=== PATIENT | female | born 1950 | race Caucasian/White ===

== ENCOUNTER 2017-09-30 17:29 | Day surgery (SDC) | payer OTHER ==
[~2017-09-30 17:29] MED LIST: ALBU3IS INH; ALBUIS INH; APLXABAN; ATEN25 PO; BUDE.5; Colace100 MG PO; DILT30 PT; ELIQUIS5 MG PT; FURO100EL; Flonase 0.05% N16 GM; LIDO5TP TOP; LISI5 PO; METO25ER PO; Miralax17 GM PO; OXYC5 PT; Prinivil10 MG PT; TRAM50 PO; TRAZ150T57 PO; VENL25 PO; VENL37.5 PT; VENL75ER PO; ZOLP5
[2018-07-10] MEDS ORDERED: LINZESS145 MCG PO (09:01)
[2018-07-10] MEDS ORDERED: LISI5 PO (09:02)
[2018-07-10] MEDS ORDERED: GUAI600T33 PO (13:09)
[2018-07-13] MEDS ORDERED: Pedi-Dri 100,0060 GM TOP (13:18)
[2018-07-13] MEDS ORDERED: CEPACOL SORE T1 EACH MM (13:18)
[2018-07-13] MEDS ORDERED: CLARITIN5 MG PO (13:19)
[2018-07-13] MEDS ORDERED: Augmentin 875-1 EACH PO (13:20)
[2018-08-13] MEDS ORDERED: Artificial Tea1 EACH (11:00)
[2018-08-13] MEDS ORDERED: BENADRYL25 MG PO (11:01)
[2018-08-13] MEDS ORDERED: CEPACOL SORE T1 EACH MM (11:01)
[2018-08-13] MEDS ORDERED: CLARITIN10 MG PO (11:02)
[2018-08-13] MEDS ORDERED: ALBU3IS (11:04)
[2018-08-13] MEDS ORDERED: DOC250 PO (11:04)
[2018-08-13] MEDS ORDERED: VENL75ER PO (11:05)
[2018-08-13] MEDS ORDERED: Ferrous Sulfat325 M2 PO (11:05)
[2018-08-13] MEDS ORDERED: FLONASE ALLERG9.9 ML (11:05)
[2018-08-13] MEDS ORDERED: LINZESS145 MCG PO (11:06)
[2018-08-13] MEDS ORDERED: FURO20 PO (11:06)
[2018-08-13] MEDS ORDERED: Prinivil10 MG PO (11:06)
[2018-08-13] MEDS ORDERED: METO25ER PO (11:08)
[2018-08-13] MEDS ORDERED: Milk Of Ma400 MG/5 M PO (11:13)
[2018-08-13] MEDS ORDERED: MIRALAX17 GM PO (11:13)
[2018-08-13] MEDS ORDERED: NUTRISOURCE FI1 EACH PO (11:13)
[2018-08-13] MEDS ORDERED: Percocet 5-3251 EACH PO (11:14)
[2018-08-13] MEDS ORDERED: OXYC10ER PO (11:14)
[2018-08-13] MEDS ORDERED: Prilosec Otc20 MG PO (11:14)
[2018-08-13] MEDS ORDERED: TRAZ50 PO (11:15)
[2018-08-13] MEDS ORDERED: Pure & Gentle E15 ML BOTHEYES (17:44)
[2018-08-13] MEDS ORDERED: ALBU3IS INH (17:48)
[2018-08-13] MEDS ORDERED: CVS DISPOSABLE399 ML PR (17:51)
[2018-08-13] MEDS ORDERED: LAXATIVE SUPPO1 EACH PR (17:53)
[2018-08-13] MEDS ORDERED: LIDO5TO TOP (17:54)
[2018-08-13] MEDS ORDERED: GUAI600T33 PO (17:54)
[2018-08-13] MEDS ORDERED: NITR.4SL SL (17:58)
[2018-08-13] MEDS ORDERED: ANESTHETIC MM (17:59)
[2018-08-13] MEDS ORDERED: OXYC10TA19 PO (18:01)
[2018-08-13] MEDS ORDERED: ROBITUSSIN NIG237 ML PO (18:04)
[2018-08-13] MEDS ORDERED: SENN187 PO (18:04)
[2018-08-13] MEDS ORDERED: ACET325 PO (18:05)
[2018-08-13] MEDS ORDERED: Voltaren100 GM TOP (18:07)
[2018-08-13] MEDS ORDERED: Zofran4 MG PO (18:08)
[2018-08-13] MEDS ORDERED: Budesonide0.5 MG/2 M INH (18:09)
[2018-08-15] MEDS ORDERED: CEPH500 PO (11:56)
== END 2017-10-01 04:35 | disposition home or self-care (01) ==
LOC: MEDS 17:29
PROC: 30233N1 Transfusion of Nonautologous Red Blood Cells into Peripheral Vein, Percutaneous Approach (ICD-10-PCS; principal; 2017-09-30)
DX: D64.9 Anemia, unspecified (principal)
CPT/HCPCS: 36415; 36430; 86850; 86900; 86901; 86920; J1940; J7030; P9016

== ENCOUNTER 2017-10-04 20:17 | Inpatient (IN) | payer OTHER ==
[~2017-10-04] VITALS: Ht 157.5 cm; Wt 41.2 kg
[2017-10-04 20:47] LABS: BASOPHILS ABSOLUTE AUTO 0.08 K/mm3 (0.00-0.23); BASOPHILS PERCENT AUTO 1 % (0-2); EOSINOPHILS ABSOLUTE AUTO 0.31 K/mm3 (0.00-0.68); EOSINOPHILS PERCENT AUTO 3 % (0-6); Hematocrit 37.3 % (33.0-51.0); Hemoglobin 11.2 g/dL (11.5-16.0); IMMATURE GRAN ABSOLUTE AUTO 0.05 K/mm3 (0.00-0.10); IMMATURE GRAN PERCENT AUTO 0 % (0-1); LYMPHOCYTES PERCENT AUTO 6 % (21-46); MONOCYTES ABSOLUTE AUTO 1.12 K/mm3 (0.16-1.47); MONOCYTES PERCENT AUTO 9 % (4-13); Mean Corpuscular HGB 26.5 pg (26.0-34.0); Mean Corpuscular Volume 88 fL (80-100); Mean Platelet Volume 9.1 fL (9.1-12.4); NEUTROPHILS ABSOLUTE AUTO 10.27 K/mm3 (1.96-9.15); NEUTROPHILS PERCENT AUTO 81 % (41-73); Platelet Count 427 K/mm3 (150-400); RDW Coefficient Variation 17.7 % (11.7-14.2); RDW Standard Deviation 54.5 fL (35.1-46.3); Red Blood Cell Count 4.23 M/mm3 (3.80-5.20); White Blood Cell Count 12.63 K/mm3 (4.00-11.30)
[2017-10-04 21:06] LABS: Alanine Aminotransfer (ALT/SGP 12 U/L (12-78); Albumin/Globulin Ratio 0.5 (0.8-1.8); Alk Phos 133 U/L (50-136); Anion Gap 6 mmol/L (6-16); Aspartate Aminotrans (AST/SGOT 12 U/L (12-37); Bilirubin, Total 0.6 mg/dL (0.1-1.0); Blood Urea Nitrogen 22 mg/dL (8-24); Bun/Creatinine Ratio 29.3 (12.0-20.0); CO2, Blood 30 mmol/L (21-32); Calcium, Blood 10.7 mg/dL (8.5-10.1); Chloride, Blood 100 mmol/L (98-108); Creatinine, Blood 0.75 mg/dL (0.40-1.00); Globulin, Blood 5.7 g/dL (2.2-4.0); Glomerular Filtration Rate >60 (60-); Glucose, Blood 100 mg/dL (70-99); Potassium, Blood 4.8 mmol/L (3.5-5.5); Sodium, Blood 136 mmol/L (136-145); Total Protein, Blood 8.7 g/dL (6.4-8.2); Troponin I <0.015 ng/mL (0.000-0.040)
[2017-10-04 21:18] LABS: PCO2 Arterial 51.7 mmHg (35-45); pH Blood Arterial 7.38 (7.35-7.45)
[2017-10-04 21:20] LABS: PO2 Arterial 85.3 mmHg (80-100)
[2017-10-04] MEDS ORDERED: FURO20 PO (22:02)
[2017-10-04] MEDS ORDERED: GAVILAX17 GM PO (23:58)
[2017-10-04] MEDS ORDERED: Prilosec Otc20 MG PO (23:59)
[2017-10-05] MEDS ORDERED: NUTRISOURCE FI1 EACH PO
[2017-10-05] MEDS ORDERED: TRAZ50 PO (00:01)
[2017-10-05] MEDS ORDERED: CHOL10002 PO (00:02)
[2017-10-05] MEDS ORDERED: DOCU100 PO (00:02)
[2017-10-05] MEDS ORDERED: ELIQUIS5 MG PO (00:03)
[2017-10-05] MEDS ORDERED: Ferrous Sulfat325 MG PO (00:04)
[2017-10-05] MEDS ORDERED: Flonase 0.05% N16 GM (00:04)
[2017-10-05] MEDS ORDERED: BUDE.5 NEB (00:05)
[2017-10-05] MEDS ORDERED: SENN187 PO (00:06)
[2017-10-05] MEDS ORDERED: ACET325 PO (00:07)
[2017-10-05] MEDS ORDERED: ARTIFICIAL TEAR30 ML BOTHEYES (00:09)
[2017-10-05] MEDS ORDERED: OXYC10TA19 PO (00:12)
[2017-10-05] MEDS ORDERED: ALBU3IS INH (00:13)
[2017-10-05] MEDS ORDERED: DIPH50 PO (00:14)
[2017-10-05] MEDS ORDERED: ROBITUSSIN NIG237 ML PO (00:16)
[2017-10-05] MEDS ORDERED: ONDA4 PO (00:17)
[2017-10-05 04:57] LABS: BASOPHILS ABSOLUTE AUTO 0.06 K/mm3 (0.00-0.23); BASOPHILS PERCENT AUTO 1 % (0-2); EOSINOPHILS ABSOLUTE AUTO 0.12 K/mm3 (0.00-0.68); EOSINOPHILS PERCENT AUTO 1 % (0-6); Hemoglobin 10.3 g/dL (11.5-16.0); IMMATURE GRAN ABSOLUTE AUTO 0.04 K/mm3 (0.00-0.10); IMMATURE GRAN PERCENT AUTO 0 % (0-1); LYMPHOCYTES ABSOLUTE AUTO 0.86 K/mm3 (0.84-5.20); LYMPHOCYTES PERCENT AUTO 7 % (21-46); MONOCYTES ABSOLUTE AUTO 0.97 K/mm3 (0.16-1.47); MONOCYTES PERCENT AUTO 8 % (4-13); Mean Corpuscular HGB 26.5 pg (26.0-34.0); Mean Corpuscular HGB Conc 30.3 g/dL (31.5-36.5); Mean Corpuscular Volume 87 fL (80-100); Mean Platelet Volume 9.4 fL (9.1-12.4); NEUTROPHILS ABSOLUTE AUTO 10.16 K/mm3 (1.96-9.15); NEUTROPHILS PERCENT AUTO 83 % (41-73); Platelet Count 400 K/mm3 (150-400); RDW Coefficient Variation 17.9 % (11.7-14.2); RDW Standard Deviation 54.4 fL (35.1-46.3); Red Blood Cell Count 3.89 M/mm3 (3.80-5.20); White Blood Cell Count 12.21 K/mm3 (4.00-11.30)
[2017-10-05 05:16] LABS: Alanine Aminotransfer (ALT/SGP 9 U/L (12-78); Albumin, Blood 2.8 g/dL (3.4-5.0); Albumin/Globulin Ratio 0.5 (0.8-1.8); Alk Phos 119 U/L (50-136); Anion Gap 6 mmol/L (6-16); Aspartate Aminotrans (AST/SGOT 12 U/L (12-37); Bilirubin, Total 0.3 mg/dL (0.1-1.0); Blood Urea Nitrogen 20 mg/dL (8-24); Bun/Creatinine Ratio 25.7 (12.0-20.0); CO2, Blood 28 mmol/L (21-32); Calcium, Blood 10.3 mg/dL (8.5-10.1); Chloride, Blood 102 mmol/L (98-108); Creatinine, Blood 0.78 mg/dL (0.40-1.00); Globulin, Blood 5.1 g/dL (2.2-4.0); Glomerular Filtration Rate >60 (60-); Glucose, Blood 113 mg/dL (70-99); Potassium, Blood 4.4 mmol/L (3.5-5.5); Sodium, Blood 136 mmol/L (136-145); Total Protein, Blood 7.9 g/dL (6.4-8.2)
[2017-10-06 05:32] LABS: BASOPHILS ABSOLUTE AUTO 0.05 K/mm3 (0.00-0.23); BASOPHILS PERCENT AUTO 1 % (0-2); EOSINOPHILS ABSOLUTE AUTO 0.23 K/mm3 (0.00-0.68); EOSINOPHILS PERCENT AUTO 3 % (0-6); Hemoglobin 9.9 g/dL (11.5-16.0); IMMATURE GRAN ABSOLUTE AUTO 0.03 K/mm3 (0.00-0.10); IMMATURE GRAN PERCENT AUTO 0 % (0-1); LYMPHOCYTES ABSOLUTE AUTO 0.79 K/mm3 (0.84-5.20); LYMPHOCYTES PERCENT AUTO 9 % (21-46); MONOCYTES ABSOLUTE AUTO 0.98 K/mm3 (0.16-1.47); MONOCYTES PERCENT AUTO 12 % (4-13); Mean Corpuscular HGB 26.9 pg (26.0-34.0); Mean Corpuscular HGB Conc 30.9 g/dL (31.5-36.5); Mean Corpuscular Volume 87 fL (80-100); Mean Platelet Volume 9.3 fL (9.1-12.4); NEUTROPHILS ABSOLUTE AUTO 6.31 K/mm3 (1.96-9.15); NEUTROPHILS PERCENT AUTO 75 % (41-73); Platelet Count 375 K/mm3 (150-400); RDW Coefficient Variation 18.2 % (11.7-14.2); RDW Standard Deviation 56.7 fL (35.1-46.3); Red Blood Cell Count 3.68 M/mm3 (3.80-5.20); White Blood Cell Count 8.39 K/mm3 (4.00-11.30)
[2017-10-06 05:52] LABS: Alanine Aminotransfer (ALT/SGP 12 U/L (12-78); Albumin, Blood 2.6 g/dL (3.4-5.0); Albumin/Globulin Ratio 0.5 (0.8-1.8); Alk Phos 112 U/L (50-136); Anion Gap 6 mmol/L (6-16); Aspartate Aminotrans (AST/SGOT 9 U/L (12-37); Bilirubin, Total 0.4 mg/dL (0.1-1.0); Blood Urea Nitrogen 24 mg/dL (8-24); Bun/Creatinine Ratio 27.2 (12.0-20.0); CO2, Blood 30 mmol/L (21-32); Calcium, Blood 10.1 mg/dL (8.5-10.1); Chloride, Blood 99 mmol/L (98-108); Creatinine, Blood 0.88 mg/dL (0.40-1.00); Glomerular Filtration Rate >60 (60-); Glucose, Blood 91 mg/dL (70-99); Magnesium, Blood 2.1 mg/dL (1.6-2.4); Potassium, Blood 4.5 mmol/L (3.5-5.5); Sodium, Blood 135 mmol/L (136-145); Total Protein, Blood 7.6 g/dL (6.4-8.2)
[2017-10-07] MEDS ORDERED: Percocet 5-3251 EACH PO (12:21)
[2018-07-10] MEDS ORDERED: LINZESS145 MCG PO (09:01)
[2018-07-10] MEDS ORDERED: LISI5 PO (09:02)
[2018-07-10] MEDS ORDERED: GUAI600T33 PO (13:09)
[2018-07-13] MEDS ORDERED: CEPACOL SORE T1 EACH MM (13:18)
[2018-07-13] MEDS ORDERED: Pedi-Dri 100,0060 GM TOP (13:18)
[2018-07-13] MEDS ORDERED: CLARITIN5 MG PO (13:19)
[2018-07-13] MEDS ORDERED: Augmentin 875-1 EACH PO (13:20)
[2018-08-13] MEDS ORDERED: Artificial Tea1 EACH (11:00)
[2018-08-13] MEDS ORDERED: CEPACOL SORE T1 EACH MM (11:01)
[2018-08-13] MEDS ORDERED: BENADRYL25 MG PO (11:01)
[2018-08-13] MEDS ORDERED: CLARITIN10 MG PO (11:02)
[2018-08-13] MEDS ORDERED: DOC250 PO (11:04)
[2018-08-13] MEDS ORDERED: ALBU3IS (11:04)
[2018-08-13] MEDS ORDERED: VENL75ER PO (11:05)
[2018-08-13] MEDS ORDERED: Ferrous Sulfat325 M2 PO (11:05)
[2018-08-13] MEDS ORDERED: FLONASE ALLERG9.9 ML (11:05)
[2018-08-13] MEDS ORDERED: LINZESS145 MCG PO (11:06)
[2018-08-13] MEDS ORDERED: FURO20 PO (11:06)
[2018-08-13] MEDS ORDERED: Prinivil10 MG PO (11:06)
[2018-08-13] MEDS ORDERED: METO25ER PO (11:08)
[2018-08-13] MEDS ORDERED: MIRALAX17 GM PO (11:13)
[2018-08-13] MEDS ORDERED: Milk Of Ma400 MG/5 M PO (11:13)
[2018-08-13] MEDS ORDERED: NUTRISOURCE FI1 EACH PO (11:13)
[2018-08-13] MEDS ORDERED: Prilosec Otc20 MG PO (11:14)
[2018-08-13] MEDS ORDERED: Percocet 5-3251 EACH PO (11:14)
[2018-08-13] MEDS ORDERED: OXYC10ER PO (11:14)
[2018-08-13] MEDS ORDERED: TRAZ50 PO (11:15)
[2018-08-13] MEDS ORDERED: Pure & Gentle E15 ML BOTHEYES (17:44)
[2018-08-13] MEDS ORDERED: ALBU3IS INH (17:48)
[2018-08-13] MEDS ORDERED: CVS DISPOSABLE399 ML PR (17:51)
[2018-08-13] MEDS ORDERED: LAXATIVE SUPPO1 EACH PR (17:53)
[2018-08-13] MEDS ORDERED: LIDO5TO TOP (17:54)
[2018-08-13] MEDS ORDERED: GUAI600T33 PO (17:54)
[2018-08-13] MEDS ORDERED: NITR.4SL SL (17:58)
[2018-08-13] MEDS ORDERED: ANESTHETIC MM (17:59)
[2018-08-13] MEDS ORDERED: OXYC10TA19 PO (18:01)
[2018-08-13] MEDS ORDERED: ROBITUSSIN NIG237 ML PO (18:04)
[2018-08-13] MEDS ORDERED: SENN187 PO (18:04)
[2018-08-13] MEDS ORDERED: ACET325 PO (18:05)
[2018-08-13] MEDS ORDERED: Voltaren100 GM TOP (18:07)
[2018-08-13] MEDS ORDERED: Zofran4 MG PO (18:08)
[2018-08-13] MEDS ORDERED: Budesonide0.5 MG/2 M INH (18:09)
[2018-08-15] MEDS ORDERED: CEPH500 PO (11:56)
== END 2017-10-07 16:15 | DRG 200 ==
LOC: ER 20:17 → SURS 22:00 → MEDS 22:00 → ER 23:07 → SURS 23:35
PROVIDERS: Emergency Medicine; Internal Medicine
PROC: 0W9900Z Drainage of Right Pleural Cavity with Drainage Device, Open Approach (ICD-10-PCS; principal; 2017-10-04)
DX: J93.11 Primary spontaneous pneumothorax (principal); J44.1 Chronic obstructive pulmonary disease with (acute) exacerbation; I48.91 Unspecified atrial fibrillation; E83.52 Hypercalcemia; R13.10 Dysphagia, unspecified; Z99.81 Dependence on supplemental oxygen; I69.391 Dysphagia following cerebral infarction; F32.9 Major depressive disorder, single episode, unspecified; G89.29 Other chronic pain; Z66 Do not resuscitate; D64.9 Anemia, unspecified
CPT/HCPCS: 32551; 36415; 36600; 71045; 71046; 80053; 82306; 82803; 83735; 83880; 84484; 85025; 93005; 93010; 94640; 94644; 94760; 96374; 96376; 99285; J1650; J2405; J3010; Q0163

== ENCOUNTER → 2017-10-14 | Outpatient (CLI) | payer OTHER ==
[~2017-10-14] MED LIST changes: +ACET325 PO; +ALBU3IS; +AMOCLA500 PO; +ANESTHETIC MM; +ARTIFICIAL TEAR30 ML BOTHEYES; +Artificial Tea1 EACH; +Augmentin 875-1 EACH PO; +BENADRYL25 MG PO; +BUDE.5 NEB; +Budesonide0.5 MG/2 M INH; +CEPACOL SORE T1 EACH MM; +CEPH500 PO; +CHOL10002 PO; +CLARITIN10 MG PO; +CLARITIN5 MG PO; +CVS DISPOSABLE399 ML PR; +DIPH50 PO; +DOC250 PO; +DOCU100 PO; +ELIQUIS5 MG PO; +FLONASE ALLERG9.9 ML; +FURO20 PO; +Ferrous Sulfat325 M2 PO; +Ferrous Sulfat325 MG PO; +GAVILAX17 GM PO; +GUAI600T33 PO; +LACT10SY PO; +LAXATIVE SUPPO1 EACH PR; +LIDO5TO TOP; +LINZESS145 MCG PO; +MIRALAX17 GM PO; +Milk Of Ma400 MG/5 M PO; +NITR.4SL SL; +NUTRISOURCE FI1 EACH PO; +ONDA4 PO; +OXYC10ER PO; +OXYC10TA19 PO; +Pedi-Dri 100,0060 GM TOP; +Percocet 5-3251 EACH PO; +Prilosec Otc20 MG PO; +Prinivil10 MG PO; +Pure & Gentle E15 ML BOTHEYES; +ROBITUSSIN NIG237 ML PO; +SENN187 PO; +TRAZ50 PO; +Voltaren100 GM TOP; +WARF5 PO; +Zofran4 MG PO
[2017-10-14 12:44] LABS: BASOPHILS ABSOLUTE AUTO 0.08 K/mm3 (0.00-0.23); BASOPHILS PERCENT AUTO 1 % (0-2); EOSINOPHILS ABSOLUTE AUTO 0.31 K/mm3 (0.00-0.68); EOSINOPHILS PERCENT AUTO 3 % (0-6); Hematocrit 31.5 % (33.0-51.0); Hemoglobin 9.7 g/dL (11.5-16.0); IMMATURE GRAN ABSOLUTE AUTO 0.04 K/mm3 (0.00-0.10); IMMATURE GRAN PERCENT AUTO 0 % (0-1); LYMPHOCYTES PERCENT AUTO 7 % (21-46); MONOCYTES ABSOLUTE AUTO 0.95 K/mm3 (0.16-1.47); MONOCYTES PERCENT AUTO 9 % (4-13); Mean Corpuscular HGB 27.6 pg (26.0-34.0); Mean Corpuscular HGB Conc 30.8 g/dL (31.5-36.5); Mean Platelet Volume 10.4 fL (9.1-12.4); NEUTROPHILS ABSOLUTE AUTO 8.79 K/mm3 (1.96-9.15); NEUTROPHILS PERCENT AUTO 80 % (41-73); Platelet Count 441 K/mm3 (150-400); RDW Coefficient Variation 19.3 % (11.7-14.2); RDW Standard Deviation 61.6 fL (35.1-46.3); Red Blood Cell Count 3.52 M/mm3 (3.80-5.20); White Blood Cell Count 10.97 K/mm3 (4.00-11.30)
[2017-10-14 13:01] LABS: Mean Corpuscular Volume 90 fL (80-100)
[2017-10-14 13:09] LABS: Alanine Aminotransfer (ALT/SGP 14 U/L (12-78); Albumin, Blood 2.6 g/dL (3.4-5.0); Albumin/Globulin Ratio 0.5 (0.8-1.8); Alk Phos 109 U/L (50-136); Anion Gap 5 mmol/L (6-16); Aspartate Aminotrans (AST/SGOT 13 U/L (12-37); Bilirubin, Total 0.2 mg/dL (0.1-1.0); Blood Urea Nitrogen 26 mg/dL (8-24); Bun/Creatinine Ratio 31.4 (12.0-20.0); CO2, Blood 30 mmol/L (21-32); Calcium, Blood 10.3 mg/dL (8.5-10.1); Chloride, Blood 100 mmol/L (98-108); Creatinine, Blood 0.83 mg/dL (0.40-1.00); Glomerular Filtration Rate >60 (60-); Glucose, Blood 106 mg/dL (70-99); Potassium, Blood 4.4 mmol/L (3.5-5.5); Sodium, Blood 135 mmol/L (136-145); Total Protein, Blood 7.6 g/dL (6.4-8.2)
== END | disposition home or self-care (01) ==
LOC: LAB RH 12:12
DX: I48.2 Chronic atrial fibrillation (principal); I63.8 Other cerebral infarction; J96.21 Acute and chronic respiratory failure with hypoxia
CPT/HCPCS: 80053; 85025

== ENCOUNTER → 2018-02-17 | Outpatient (CLI) | payer OTHER ==
[~2018-02-17] MED LIST changes: -ALBU3IS; -AMOCLA500 PO; -ANESTHETIC MM; -Artificial Tea1 EACH; -Augmentin 875-1 EACH PO; -BENADRYL25 MG PO; -Budesonide0.5 MG/2 M INH; -CEPACOL SORE T1 EACH MM; -CEPH500 PO; -CLARITIN10 MG PO; -CLARITIN5 MG PO; -CVS DISPOSABLE399 ML PR; -DOC250 PO; -FLONASE ALLERG9.9 ML; -Ferrous Sulfat325 M2 PO; -GUAI600T33 PO; -LACT10SY PO; -LAXATIVE SUPPO1 EACH PR; -LIDO5TO TOP; -LINZESS145 MCG PO; -MIRALAX17 GM PO; -Milk Of Ma400 MG/5 M PO; -NITR.4SL SL; -OXYC10ER PO; -Pedi-Dri 100,0060 GM TOP; -Prinivil10 MG PO; -Pure & Gentle E15 ML BOTHEYES; -Voltaren100 GM TOP; -WARF5 PO; -Zofran4 MG PO
[2018-02-17 17:05] LABS: BASOPHILS ABSOLUTE AUTO 0.09 K/mm3 (0.00-0.23); BASOPHILS PERCENT AUTO 1 % (0-2); EOSINOPHILS ABSOLUTE AUTO 0.45 K/mm3 (0.00-0.68); EOSINOPHILS PERCENT AUTO 6 % (0-6); Hemoglobin 10.4 g/dL (11.5-16.0); IMMATURE GRAN ABSOLUTE AUTO 0.03 K/mm3 (0.00-0.10); IMMATURE GRAN PERCENT AUTO 0 % (0-1); LYMPHOCYTES ABSOLUTE AUTO 1.09 K/mm3 (0.84-5.20); LYMPHOCYTES PERCENT AUTO 14 % (21-46); MONOCYTES ABSOLUTE AUTO 0.87 K/mm3 (0.16-1.47); MONOCYTES PERCENT AUTO 11 % (4-13); Mean Corpuscular HGB 30.9 pg (26.0-34.0); Mean Corpuscular HGB Conc 31.5 g/dL (31.5-36.5); Mean Corpuscular Volume 98 fL (80-100); Mean Platelet Volume 9.6 fL (9.1-12.4); NEUTROPHILS ABSOLUTE AUTO 5.34 K/mm3 (1.96-9.15); NEUTROPHILS PERCENT AUTO 68 % (41-73); Platelet Count 373 K/mm3 (150-400); RDW Coefficient Variation 13.9 % (11.7-14.2); RDW Standard Deviation 49.7 fL (35.1-46.3); Red Blood Cell Count 3.37 M/mm3 (3.80-5.20); White Blood Cell Count 7.87 K/mm3 (4.00-11.30)
[2018-02-17 17:25] LABS: Alanine Aminotransfer (ALT/SGP 18 U/L (12-78); Albumin, Blood 2.9 g/dL (3.4-5.0); Albumin/Globulin Ratio 0.6 (0.8-1.8); Alk Phos 120 U/L (50-136); Anion Gap 7 mmol/L (6-16); Aspartate Aminotrans (AST/SGOT 14 U/L (12-37); Bilirubin, Total 0.2 mg/dL (0.1-1.0); Blood Urea Nitrogen 23 mg/dL (8-24); Bun/Creatinine Ratio 26.8 (12.0-20.0); CO2, Blood 29 mmol/L (21-32); Calcium, Blood 10.2 mg/dL (8.5-10.1); Chloride, Blood 101 mmol/L (98-108); Creatinine, Blood 0.86 mg/dL (0.40-1.00); Globulin, Blood 4.7 g/dL (2.2-4.0); Glomerular Filtration Rate >60 (60-); Glucose, Blood 96 mg/dL (70-99); Potassium, Blood 4.8 mmol/L (3.5-5.5); Sodium, Blood 137 mmol/L (136-145); Total Protein, Blood 7.6 g/dL (6.4-8.2)
== END | disposition home or self-care (01) ==
LOC: EDSTATUS 15:11 → LAB RH 16:15
DX: I50.23 Acute on chronic systolic (congestive) heart failure (principal); I48.2 Chronic atrial fibrillation
CPT/HCPCS: 80053; 85025

== ENCOUNTER → 2018-02-19 | Outpatient (CLI) | payer OTHER ==
[2018-02-19 22:21] LABS: Source, Urine Catheter
[2018-02-19 22:31] LABS: Bilirubin, Urine Neg (Neg); Blood, Urine 1+ (Neg); Glucose Qualitative, Urine Neg (Neg); Ketones, Urine Neg (Neg); Leukocyte Esterase, Urine 3+ (Neg); Nitrite, Urine Pos (Neg); Protein, Urine Neg (Neg); Urobilinogen, Urine NORM (Normal)
[2018-02-19 22:45] LABS: Appearance, Urine Cloudy (Clear); Color, Urine Yellow (P-Yellow)
[2018-02-19 22:47] LABS: White Blood Cells, Urine TNTC /hpf (0-5)
[2018-02-19 22:51] LABS: Bacteria Many /hpf; Red Blood Cells, Urine 0-2 /hpf (0-2); Squamous Epithelial Cells Not Seen /hpf (Few)
== END | disposition home or self-care (01) ==
LOC: EDSTATUS 15:12 → LAB RH 22:19
DX: N39.0 Urinary tract infection, site not specified (principal)
CPT/HCPCS: 81001; 87077; 87086; 87186

== ENCOUNTER 2018-08-26 08:42 | Inpatient (IN) | payer OTHER ==
[~2018-08-26] VITALS: Ht 160 cm; Wt 63.0 kg
[~2018-08-26 08:42] MED LIST changes: +ALBU3IS; +ANESTHETIC MM; +Artificial Tea1 EACH; +Augmentin 875-1 EACH PO; +BENADRYL25 MG PO; +Budesonide0.5 MG/2 M INH; +CEPACOL SORE T1 EACH MM; +CEPH500 PO; +CLARITIN10 MG PO; +CLARITIN5 MG PO; +CVS DISPOSABLE399 ML PR; +DOC250 PO; +FLONASE ALLERG9.9 ML; +Ferrous Sulfat325 M2 PO; +GUAI600T33 PO; +LAXATIVE SUPPO1 EACH PR; +LIDO5TO TOP; +LINZESS145 MCG PO; +MIRALAX17 GM PO; +Milk Of Ma400 MG/5 M PO; +NITR.4SL SL; +OXYC10ER PO; +Pedi-Dri 100,0060 GM TOP; +Prinivil10 MG PO; +Pure & Gentle E15 ML BOTHEYES; +Voltaren100 GM TOP; +Zofran4 MG PO
[2018-08-26 09:14] LABS: Source, Urine Catheter
[2018-08-26 09:15] LABS: BASOPHILS ABSOLUTE AUTO 0.13 K/mm3 (0.00-0.23); BASOPHILS PERCENT AUTO 1 % (0-2); EOSINOPHILS ABSOLUTE AUTO 0.09 K/mm3 (0.00-0.68); EOSINOPHILS PERCENT AUTO 1 % (0-6); Hematocrit 37.6 % (33.0-51.0); Hemoglobin 11.2 g/dL (11.5-16.0); IMMATURE GRAN ABSOLUTE AUTO 0.07 K/mm3 (0.00-0.10); IMMATURE GRAN PERCENT AUTO 0 % (0-1); LYMPHOCYTES ABSOLUTE AUTO 0.43 K/mm3 (0.84-5.20); LYMPHOCYTES PERCENT AUTO 3 % (21-46); MONOCYTES ABSOLUTE AUTO 1.11 K/mm3 (0.16-1.47); MONOCYTES PERCENT AUTO 7 % (4-13); Mean Corpuscular HGB 30.5 pg (26.0-34.0); Mean Corpuscular HGB Conc 29.8 g/dL (31.5-36.5); Mean Platelet Volume 9.5 fL (9.1-12.4); NEUTROPHILS ABSOLUTE AUTO 15.08 K/mm3 (1.96-9.15); NEUTROPHILS PERCENT AUTO 89 % (41-73); Platelet Count 585 K/mm3 (150-400); RDW Coefficient Variation 13.5 % (11.7-14.2); RDW Standard Deviation 51.6 fL (35.1-46.3); Red Blood Cell Count 3.67 M/mm3 (3.80-5.20); White Blood Cell Count 16.91 K/mm3 (4.00-11.30)
[2018-08-26 09:16] LABS: Mean Corpuscular Volume 103 fL (80-100)
[2018-08-26 09:27] LABS: Bilirubin, Urine Neg (Neg); Blood, Urine 2+ (Neg); Glucose Qualitative, Urine Neg (Neg); Ketones, Urine Neg (Neg); Leukocyte Esterase, Urine 2+ (Neg); Nitrite, Urine Neg (Neg); Protein, Urine 2+ (Neg); Urobilinogen, Urine NORM (Normal); pH, Urine 6.5 (5.0-8.0)
[2018-08-26 09:40] LABS: Appearance, Urine Clear (Clear); Color, Urine Yellow (P-Yellow)
[2018-08-26 09:43] LABS: Squamous Epithelial Cells Rare /hpf (Few)
[2018-08-26 09:44] LABS: Bacteria Few /hpf
[2018-08-26 10:38] LABS: Albumin/Globulin Ratio 0.5 (0.8-1.8); Bilirubin, Total 0.7 mg/dL (0.1-1.0); Bun/Creatinine Ratio 22.9 (12.0-20.0); Calcium, Blood 10.4 mg/dL (8.5-10.1); Creatinine, Blood 3.98 mg/dL (0.40-1.00); Globulin, Blood 6.1 g/dL (2.2-4.0); Potassium, Blood 7.5 mmol/L (3.5-5.5); Total Protein, Blood 9.1 g/dL (6.4-8.2)
[2018-08-27 04:12] LABS: BASOPHILS ABSOLUTE AUTO 0.01 K/mm3 (0.00-0.23); BASOPHILS PERCENT AUTO 0 % (0-2); EOSINOPHILS PERCENT AUTO 0 % (0-6); Hematocrit 25.9 % (33.0-51.0); Hemoglobin 8.1 g/dL (11.5-16.0); IMMATURE GRAN ABSOLUTE AUTO 0.05 K/mm3 (0.00-0.10); IMMATURE GRAN PERCENT AUTO 0 % (0-1); LYMPHOCYTES ABSOLUTE AUTO 0.23 K/mm3 (0.84-5.20); LYMPHOCYTES PERCENT AUTO 2 % (21-46); MONOCYTES ABSOLUTE AUTO 0.17 K/mm3 (0.16-1.47); MONOCYTES PERCENT AUTO 1 % (4-13); Mean Corpuscular HGB Conc 31.3 g/dL (31.5-36.5); Mean Platelet Volume 9.7 fL (9.1-12.4); NEUTROPHILS ABSOLUTE AUTO 11.56 K/mm3 (1.96-9.15); NEUTROPHILS PERCENT AUTO 96 % (41-73); Platelet Count 372 K/mm3 (150-400); RDW Coefficient Variation 13.4 % (11.7-14.2); RDW Standard Deviation 48.1 fL (35.1-46.3); Red Blood Cell Count 2.61 M/mm3 (3.80-5.20); White Blood Cell Count 12.02 K/mm3 (4.00-11.30)
[2018-08-27 04:19] LABS: Mean Corpuscular Volume 99 fL (80-100)
[2018-08-27 04:27] LABS: Albumin, Blood 3.2 g/dL (3.4-5.0); Anion Gap 9 mmol/L (6-16); Blood Urea Nitrogen 70 mg/dL (8-24); Bun/Creatinine Ratio 21.7 (12.0-20.0); CO2, Blood 26 mmol/L (21-32); Calcium, Blood 9.4 mg/dL (8.5-10.1); Chloride, Blood 104 mmol/L (98-108); Creatinine, Blood 3.23 mg/dL (0.40-1.00); Glomerular Filtration Rate 15 (60-); Glucose, Blood 143 mg/dL (70-99); Phosphorus, Blood 3.3 mg/dL (2.5-4.9); Potassium, Blood 5.3 mmol/L (3.5-5.5); Sodium, Blood 139 mmol/L (136-145); Vancomycin, Random 13.2 ug/mL
[2018-08-28 08:13] LABS: BASOPHILS ABSOLUTE AUTO 0.04 K/mm3 (0.00-0.23); BASOPHILS PERCENT AUTO 0 % (0-2); EOSINOPHILS ABSOLUTE AUTO 0.16 K/mm3 (0.00-0.68); EOSINOPHILS PERCENT AUTO 2 % (0-6); Hematocrit 24.9 % (33.0-51.0); Hemoglobin 7.7 g/dL (11.5-16.0); IMMATURE GRAN ABSOLUTE AUTO 0.02 K/mm3 (0.00-0.10); IMMATURE GRAN PERCENT AUTO 0 % (0-1); LYMPHOCYTES ABSOLUTE AUTO 0.76 K/mm3 (0.84-5.20); LYMPHOCYTES PERCENT AUTO 8 % (21-46); MONOCYTES ABSOLUTE AUTO 1.19 K/mm3 (0.16-1.47); MONOCYTES PERCENT AUTO 13 % (4-13); Mean Corpuscular HGB Conc 30.9 g/dL (31.5-36.5); Mean Corpuscular Volume 100 fL (80-100); Mean Platelet Volume 9.9 fL (9.1-12.4); NEUTROPHILS ABSOLUTE AUTO 7.38 K/mm3 (1.96-9.15); NEUTROPHILS PERCENT AUTO 77 % (41-73); Platelet Count 316 K/mm3 (150-400); RDW Coefficient Variation 13.7 % (11.7-14.2); RDW Standard Deviation 50.3 fL (35.1-46.3); Red Blood Cell Count 2.48 M/mm3 (3.80-5.20); White Blood Cell Count 9.55 K/mm3 (4.00-11.30)
[2018-08-28 08:31] LABS: Vancomycin, Trough 19.7 ug/mL (5.0-10.0)
[2018-08-28 08:43] LABS: Albumin, Blood 3.2 g/dL (3.4-5.0); Anion Gap 8 mmol/L (6-16); Blood Urea Nitrogen 45 mg/dL (8-24); Bun/Creatinine Ratio 17.4 (12.0-20.0); CO2, Blood 28 mmol/L (21-32); Calcium, Blood 9.2 mg/dL (8.5-10.1); Chloride, Blood 106 mmol/L (98-108); Creatinine, Blood 2.58 mg/dL (0.40-1.00); Glomerular Filtration Rate 20 (60-); Glucose, Blood 87 mg/dL (70-99); Magnesium, Blood 1.7 mg/dL (1.6-2.4); Phosphorus, Blood 2.8 mg/dL (2.5-4.9); Potassium, Blood 4.2 mmol/L (3.5-5.5); Sodium, Blood 142 mmol/L (136-145)
[2018-08-28 16:45] LABS: Prothrombin Time Results 10.3 Sec (9.7-11.5)
[2018-08-29 04:37] LABS: BASOPHILS ABSOLUTE AUTO 0.06 K/mm3 (0.00-0.23); BASOPHILS PERCENT AUTO 1 % (0-2); EOSINOPHILS ABSOLUTE AUTO 0.18 K/mm3 (0.00-0.68); EOSINOPHILS PERCENT AUTO 2 % (0-6); Hematocrit 26.8 % (33.0-51.0); Hemoglobin 8.1 g/dL (11.5-16.0); IMMATURE GRAN ABSOLUTE AUTO 0.03 K/mm3 (0.00-0.10); IMMATURE GRAN PERCENT AUTO 0 % (0-1); LYMPHOCYTES ABSOLUTE AUTO 0.76 K/mm3 (0.84-5.20); LYMPHOCYTES PERCENT AUTO 8 % (21-46); MONOCYTES PERCENT AUTO 13 % (4-13); Mean Corpuscular HGB 30.5 pg (26.0-34.0); Mean Corpuscular HGB Conc 30.2 g/dL (31.5-36.5); Mean Corpuscular Volume 101 fL (80-100); Mean Platelet Volume 9.8 fL (9.1-12.4); NEUTROPHILS ABSOLUTE AUTO 7.67 K/mm3 (1.96-9.15); NEUTROPHILS PERCENT AUTO 77 % (41-73); Platelet Count 325 K/mm3 (150-400); RDW Coefficient Variation 13.7 % (11.7-14.2); RDW Standard Deviation 50.4 fL (35.1-46.3); Red Blood Cell Count 2.66 M/mm3 (3.80-5.20)
[2018-08-29 04:52] LABS: International Normalized Ratio 1.01; Prothrombin Time Results 10.4 Sec (9.7-11.5)
[2018-08-29 04:56] LABS: Anion Gap 7 mmol/L (6-16); Blood Urea Nitrogen 37 mg/dL (8-24); Bun/Creatinine Ratio 17.5 (12.0-20.0); CO2, Blood 26 mmol/L (21-32); Calcium, Blood 9.4 mg/dL (8.5-10.1); Chloride, Blood 109 mmol/L (98-108); Creatinine, Blood 2.12 mg/dL (0.40-1.00); Glomerular Filtration Rate 24 (60-); Glucose, Blood 89 mg/dL (70-99); Magnesium, Blood 1.7 mg/dL (1.6-2.4); Phosphorus, Blood 2.5 mg/dL (2.5-4.9); Potassium, Blood 4.1 mmol/L (3.5-5.5); Sodium, Blood 142 mmol/L (136-145); Vancomycin, Random 25.3 ug/mL
[2018-08-29] MEDS ORDERED: LACT10SY PO (15:00)
[2018-08-29] MEDS ORDERED: WARF5 PO (15:01)
[2018-08-29] MEDS ORDERED: AMOCLA500 PO (15:02)
== END 2018-08-29 17:07 | DRG 871 ==
LOC: ER 08:42 → ICUW 11:31 → MEDS 11:31 → ICUE 11:31 → EDBEDREQ 13:18 → ICUE 13:30 → ICUW 23:07 → MEDS 08-27 16:22
PROVIDERS: Internal Medicine; Internal Medicine Critical Care Medicine; Internal Medicine Nephrology; Pharmacist
PROC: 3E033XZ Introduction of Vasopressor into Peripheral Vein, Percutaneous Approach (ICD-10-PCS; principal; 2018-08-26)
DX: A41.9 Sepsis, unspecified organism (principal); R65.21 Severe sepsis with septic shock; N17.9 Acute kidney failure, unspecified; J96.11 Chronic respiratory failure with hypoxia; I95.9 Hypotension, unspecified; G89.4 Chronic pain syndrome; Z79.01 Long term (current) use of anticoagulants; E87.5 Hyperkalemia; K59.00 Constipation, unspecified; Z99.81 Dependence on supplemental oxygen; Z86.73 Personal history of transient ischemic attack (TIA), and cerebral infarction without residual deficits; T17.920A Food in respiratory tract, part unspecified causing asphyxiation, initial encounter; I48.0 Paroxysmal atrial fibrillation; R62.7 Adult failure to thrive
CPT/HCPCS: 36415; 36556; 51701; 51702; 71045; 74022; 74176; 80053; 80069; 80202; 81001; 83605; 83735; 84132; 85025; 85610; 87040; 87086; 93005; 93010; 94640; 94760; 96365; 96368; 96375; 99285-25; C1751; J0610; J0692; J1644; J1815; J2185; J2930; J3370; J7030; J7060; J7070; J7120; P9041

== ENCOUNTER → 2018-09-20 | Outpatient (CLI) | payer OTHER ==
[~2018-09-20] MED LIST changes: +AMOCLA500 PO; +Keflex500 MG PO; +LACT10SY PO; +LORA.5 PO; +LORA1; +WARF5 PO
[2018-09-20 08:37] LABS: Creatinine Urine 40.4 mg/dL (27.00-270.00); Protein, Urine Quantitative 56.8 mg/dL (0.0-11.9)
[2018-09-20 08:40] LABS: Microalbumin, Urine Quant. 58.2 mg/L (0.000-20.000)
== END | disposition home or self-care (01) ==
LOC: LAB RH 06:53 → EDSTATUS 10:52
PROVIDERS: Internal Medicine Nephrology
DX: N18.3 Chronic kidney disease, stage 3 (moderate) (principal); D63.1 Anemia in chronic kidney disease; N25.81 Secondary hyperparathyroidism of renal origin; E55.9 Vitamin D deficiency, unspecified; E78.00 Pure hypercholesterolemia, unspecified; R76.9 Abnormal immunological finding in serum, unspecified
CPT/HCPCS: 81050; 82043; 82570; 84156

== ENCOUNTER 2018-10-28 10:56 | Emergency (ER) | payer OTHER ==
[~2018-10-28] VITALS: Ht 157.5 cm; Wt 56.7 kg
[~2018-10-28 10:56] MED LIST changes: -Keflex500 MG PO; -LORA.5 PO; -LORA1
[2018-10-28 11:31] LABS: Source, Urine Clean Catch
[2018-10-28 11:37] LABS: Appearance, Urine Hazy (Clear); Bilirubin, Urine Neg (Neg); Blood, Urine 2+ (Neg); Color, Urine Yellow (P-Yellow); Glucose Qualitative, Urine Neg (Neg); Ketones, Urine Neg (Neg); Leukocyte Esterase, Urine 3+ (Neg); Nitrite, Urine Neg (Neg); Protein, Urine 2+ (Neg); Urobilinogen, Urine NORM (Normal)
[2018-10-28 11:39] LABS: BASOPHILS ABSOLUTE AUTO 0.09 K/mm3 (0.00-0.23); BASOPHILS PERCENT AUTO 1 % (0-2); EOSINOPHILS ABSOLUTE AUTO 0.08 K/mm3 (0.00-0.68); EOSINOPHILS PERCENT AUTO 1 % (0-6); Hematocrit 40.1 % (33.0-51.0); Hemoglobin 12.2 g/dL (11.5-16.0); IMMATURE GRAN ABSOLUTE AUTO 0.05 K/mm3 (0.00-0.10); IMMATURE GRAN PERCENT AUTO 0 % (0-1); LYMPHOCYTES ABSOLUTE AUTO 0.65 K/mm3 (0.84-5.20); LYMPHOCYTES PERCENT AUTO 5 % (21-46); MONOCYTES ABSOLUTE AUTO 0.75 K/mm3 (0.16-1.47); MONOCYTES PERCENT AUTO 6 % (4-13); Mean Corpuscular HGB 30.1 pg (26.0-34.0); Mean Corpuscular HGB Conc 30.4 g/dL (31.5-36.5); Mean Corpuscular Volume 99 fL (80-100); Mean Platelet Volume 9.7 fL (9.1-12.4); NEUTROPHILS ABSOLUTE AUTO 11.99 K/mm3 (1.96-9.15); NEUTROPHILS PERCENT AUTO 88 % (41-73); Platelet Count 469 K/mm3 (150-400); RDW Coefficient Variation 14.3 % (11.7-14.2); RDW Standard Deviation 51.9 fL (35.1-46.3); Red Blood Cell Count 4.05 M/mm3 (3.80-5.20); White Blood Cell Count 13.61 K/mm3 (4.00-11.30)
[2018-10-28 11:47] LABS: International Normalized Ratio 0.96; Prothrombin Time Results 10.2 Sec (9.7-11.5)
[2018-10-28 11:55] LABS: Alanine Aminotransfer (ALT/SGP 19 U/L (12-78); Albumin, Blood 3.5 g/dL (3.4-5.0); Albumin/Globulin Ratio 0.6 (0.8-1.8); Alk Phos 128 U/L (50-136); Anion Gap 8 mmol/L (6-16); Aspartate Aminotrans (AST/SGOT 23 U/L (12-37); Bilirubin, Total 0.2 mg/dL (0.1-1.0); Blood Urea Nitrogen 23 mg/dL (8-24); Bun/Creatinine Ratio 24.7 (12.0-20.0); CO2, Blood 24 mmol/L (21-32); Calcium, Blood 10.9 mg/dL (8.5-10.1); Chloride, Blood 103 mmol/L (98-108); Creatinine, Blood 0.93 mg/dL (0.40-1.00); Globulin, Blood 5.7 g/dL (2.2-4.0); Glomerular Filtration Rate >60 (60-); Glucose, Blood 108 mg/dL (70-99); Potassium, Blood 3.8 mmol/L (3.5-5.5); Sodium, Blood 135 mmol/L (136-145); Total Protein, Blood 9.2 g/dL (6.4-8.2)
[2018-10-28 11:58] LABS: Bacteria Many /hpf; Squamous Epithelial Cells Rare /hpf (Few); White Blood Cells, Urine 25-50 /hpf (0-5)
[2018-10-28 12:22] LABS: Ethanol (Alcohol), Blood, Med <3 mg/dL
[2018-10-28] MEDS ORDERED: LORA.5 PO (12:23)
[2018-10-28] MEDS ORDERED: LORA1 (12:23)
[2018-10-28] MEDS ORDERED: Keflex500 MG PO (13:04)
== END 2018-10-28 13:39 | disposition home or self-care (01) ==
LOC: ER 10:56
PROVIDERS: Physician Assistant
DX: N39.0 Urinary tract infection, site not specified (principal); Z79.899 Other long term (current) drug therapy; Z79.01 Long term (current) use of anticoagulants; I48.91 Unspecified atrial fibrillation; I10 Essential (primary) hypertension; J44.9 Chronic obstructive pulmonary disease, unspecified; F03.90 Unspecified dementia, unspecified severity, without behavioral disturbance, psychotic disturbance, mood disturbance, and anxiety; Z86.718 Personal history of other venous thrombosis and embolism; Z86.73 Personal history of transient ischemic attack (TIA), and cerebral infarction without residual deficits; Z87.891 Personal history of nicotine dependence
CPT/HCPCS: 36415; 80053; 81001; 85025; 85610; 87077; 87086; 87186; 93005; 93010; 94640; 96374; 99285-25; G0480; J2405

== ENCOUNTER → 2018-12-02 | Outpatient (CLI) | payer OTHER ==
[~2018-12-02] MED LIST changes: +ACET325 PT; +ALBU2.5V5 NEB; +ASPI325 PT; +Ativan0.5 MG PO; +BENZ100A PT; +BISA10S PR; +CALC.25 PT; +DICLOFENAC SOD100 G1 TOP; +DOXY100 PT; +FLEET ENEMA EX230 ML PR; +Ferrous Sulfat325 M2 PT; +GAVILAX17 GM PT; +GENTEAL TEARS S10 GM BOTHEYES; +Keflex500 MG PO; +LACTULOSE20 GM/30 M PT; +LINZESS145 MCG PT; +LORA.5 PO; +LORA1; +Lopressor 25 mg25 MG PT; +MORP20L SL; +NYST100000 TOP; +OMEPRAZOLE20 MG PT; +PROMETH-CODEIN 65 ML PO; +Percocet 5-3251 EACH PT; +Pulmicort0.5 MG/2 M INH; +SCOPOLAMINE1 EACH TD; +TRAZ50 PT; +VENL75ER PT; +Vitamin D2000 UNIT PO; +Zofran4 MG PT
== END | disposition home or self-care (01) ==
LOC: LAB RH 07:56 → EDSTATUS 08:46
DX: E87.5 Hyperkalemia (principal)
CPT/HCPCS: 84132

== ENCOUNTER 2019-01-05 08:08 | Inpatient (IN) | payer OTHER ==
[~2019-01-05] VITALS: Ht 160 cm; Wt 56.2 kg
[~2019-01-05 08:08] MED LIST changes: -ACET325 PT; -ALBU2.5V5 NEB; -ASPI325 PT; -Ativan0.5 MG PO; -BENZ100A PT; -BISA10S PR; -CALC.25 PT; -DICLOFENAC SOD100 G1 TOP; -DOXY100 PT; -FLEET ENEMA EX230 ML PR; -Ferrous Sulfat325 M2 PT; -GAVILAX17 GM PT; -GENTEAL TEARS S10 GM BOTHEYES; -LACTULOSE20 GM/30 M PT; -LINZESS145 MCG PT; -Lopressor 25 mg25 MG PT; -MORP20L SL; -NYST100000 TOP; -OMEPRAZOLE20 MG PT; -PROMETH-CODEIN 65 ML PO; -Percocet 5-3251 EACH PT; -Pulmicort0.5 MG/2 M INH; -SCOPOLAMINE1 EACH TD; -TRAZ50 PT; -VENL75ER PT; -Vitamin D2000 UNIT PO; -Zofran4 MG PT
[2019-01-05] MEDS ORDERED: CALC.25 PT (08:13)
[2019-01-05] MEDS ORDERED: ASPI325 PT (08:13)
[2019-01-05] MEDS ORDERED: Flonase 0.05% N16 GM ×2 (08:14→22:43)
[2019-01-05] MEDS ORDERED: Ferrous Sulfat325 M2 PT (08:14)
[2019-01-05] MEDS ORDERED: GAVILAX17 GM PT (08:15)
[2019-01-05] MEDS ORDERED: METO25ER PO (08:15)
[2019-01-05] MEDS ORDERED: TRAZ50 PT (08:15)
[2019-01-05] MEDS ORDERED: LINZESS145 MCG PT (08:15)
[2019-01-05] MEDS ORDERED: OMEPRAZOLE20 MG PT (08:15)
[2019-01-05] MEDS ORDERED: Vitamin D2000 UNIT PO (08:16)
[2019-01-05] MEDS ORDERED: VENL75ER PT (08:16)
[2019-01-05] MEDS ORDERED: Pulmicort0.5 MG/2 M INH (08:16)
[2019-01-05] MEDS ORDERED: GENTEAL TEARS S10 GM BOTHEYES (08:17)
[2019-01-05] MEDS ORDERED: LACTULOSE20 GM/30 M PT (08:17)
[2019-01-05] MEDS ORDERED: Percocet 5-3251 EACH PT (08:18)
[2019-01-05] MEDS ORDERED: Ativan0.5 MG PO (08:18)
[2019-01-05] MEDS ORDERED: PROMETH-CODEIN 65 ML PO (08:19)
[2019-01-05 08:37] LABS: Source, Urine Catheter
[2019-01-05 08:58] LABS: BASOPHILS ABSOLUTE AUTO 0.04 K/mm3 (0.00-0.23); BASOPHILS PERCENT AUTO 0 % (0-2); EOSINOPHILS ABSOLUTE AUTO 0.01 K/mm3 (0.00-0.68); EOSINOPHILS PERCENT AUTO 0 % (0-6); Hemoglobin 12.5 g/dL (11.5-16.0); IMMATURE GRAN ABSOLUTE AUTO 0.09 K/mm3 (0.00-0.10); IMMATURE GRAN PERCENT AUTO 1 % (0-1); LYMPHOCYTES ABSOLUTE AUTO 0.67 K/mm3 (0.84-5.20); LYMPHOCYTES PERCENT AUTO 4 % (21-46); MONOCYTES ABSOLUTE AUTO 1.41 K/mm3 (0.16-1.47); MONOCYTES PERCENT AUTO 9 % (4-13); Mean Corpuscular HGB 28.9 pg (26.0-34.0); Mean Corpuscular HGB Conc 30.5 g/dL (31.5-36.5); Mean Corpuscular Volume 95 fL (80-100); Mean Platelet Volume 10.7 fL (9.1-12.4); NEUTROPHILS ABSOLUTE AUTO 13.22 K/mm3 (1.96-9.15); NEUTROPHILS PERCENT AUTO 86 % (41-73); Platelet Count 426 K/mm3 (150-400); RDW Coefficient Variation 14.6 % (11.7-14.2); RDW Standard Deviation 50.6 fL (35.1-46.3); Red Blood Cell Count 4.33 M/mm3 (3.80-5.20); White Blood Cell Count 15.44 K/mm3 (4.00-11.30)
[2019-01-05 08:58] LABS: Bilirubin, Urine Neg (Neg); Blood, Urine 2+ (Neg); Glucose Qualitative, Urine Neg (Neg); Ketones, Urine Neg (Neg); Leukocyte Esterase, Urine 2+ (Neg); Nitrite, Urine Neg (Neg); Protein, Urine 3+ (Neg); Urobilinogen, Urine NORM (Normal)
[2019-01-05 09:10] LABS: Appearance, Urine Hazy (Clear); Color, Urine Yellow (P-Yellow)
[2019-01-05 09:14] LABS: Amorphous Light (0-Heavy); Bacteria Mod /hpf; Squamous Epithelial Cells Rare /hpf (Few)
[2019-01-05 09:21] LABS: Alanine Aminotransfer (ALT/SGP 20 U/L (12-78); Albumin/Globulin Ratio 0.5 (0.8-1.8); Alk Phos 121 U/L (50-136); Anion Gap 10 mmol/L (6-16); Aspartate Aminotrans (AST/SGOT 23 U/L (12-37); Bilirubin, Total 0.3 mg/dL (0.1-1.0); Blood Urea Nitrogen 18 mg/dL (8-24); Bun/Creatinine Ratio 20.1 (12.0-20.0); CO2, Blood 24 mmol/L (21-32); Calcium, Blood 10.9 mg/dL (8.5-10.1); Chloride, Blood 103 mmol/L (98-108); Glomerular Filtration Rate >60 (60-); Glucose, Blood 116 mg/dL (70-99); Potassium, Blood 2.8 mmol/L (3.5-5.5); Sodium, Blood 137 mmol/L (136-145); Troponin I 0.034 ng/mL (0.000-0.040)
[2019-01-05 09:59] LABS: International Normalized Ratio 0.93; Prothrombin Time Results 9.8 Sec (9.7-11.5)
--- NOTE | 2019-01-05 18:27 | NUR ---
SHIFT SUMMARY PATIENT WAS ADMITTED TO THE FLOOR AT 1300 HOUR. PATIENT HAS ALTERED MENTAL AND HAS CONTINUED TO CALL OUT DURING THE DAY SHIFT. SHE HAS NOT TRIED TO CLIMB OUT OF BED, BUT DOESNOT CALL APPOPRIATELY AND THREATENS TO CLIMB OUT OF BED. CURRENTLY A USP CAREPATIENT AT [facility]. THE PEG TUBE WAS REPLACED IN THE ER DUE TO HER PULLING IT OUT. IF IT CONTINUES TO OOZE, DR. HARDING REQUESTED A PRESSURE DRESSING ON HER PEG TUBE TO HELP WITH THE OOZING AND THE OLD BLOOD. PATIENT HAS PUREED DIET AND NECTAR THICK LIQUIDS. POTASSIUM WAS LOW, AND SHE IS ON 20MEQ IN 1000NS. SHE IS YELLING AND CURSING, THROWING OBSCENITIES AROUND AND INAPPROPRIATE WHEN ASKING QUESTIONS. SHE DOES NOT KNOW WHERE SHE IS, OR THE TOWN. VITALS HAVE BEEN STABLE.
[2019-01-05] MEDS ORDERED: ACET325 PT (22:44)
[2019-01-05] MEDS ORDERED: ALBU3IS INH (22:45)
[2019-01-05] MEDS ORDERED: DICLOFENAC SOD100 G1 TOP (22:48)
[2019-01-05] MEDS ORDERED: BENZ100A PT (22:49)
[2019-01-05] MEDS ORDERED: Milk Of Ma400 MG/5 M PO (22:50)
[2019-01-05] MEDS ORDERED: Zofran4 MG PT (22:50)
[2019-01-05] MEDS ORDERED: BISA10S PR (22:51)
[2019-01-05] MEDS ORDERED: BENADRYL25 MG PO (22:51)
[2019-01-05] MEDS ORDERED: FLEET ENEMA EX230 ML PR (22:52)
[2019-01-06 05:17] LABS: BASOPHILS ABSOLUTE AUTO 0.07 K/mm3 (0.00-0.23); BASOPHILS PERCENT AUTO 1 % (0-2); EOSINOPHILS ABSOLUTE AUTO 0.03 K/mm3 (0.00-0.68); EOSINOPHILS PERCENT AUTO 0 % (0-6); Hematocrit 35.4 % (33.0-51.0); Hemoglobin 10.6 g/dL (11.5-16.0); IMMATURE GRAN ABSOLUTE AUTO 0.07 K/mm3 (0.00-0.10); IMMATURE GRAN PERCENT AUTO 1 % (0-1); LYMPHOCYTES ABSOLUTE AUTO 0.74 K/mm3 (0.84-5.20); LYMPHOCYTES PERCENT AUTO 6 % (21-46); MONOCYTES ABSOLUTE AUTO 1.38 K/mm3 (0.16-1.47); MONOCYTES PERCENT AUTO 11 % (4-13); Mean Corpuscular HGB Conc 29.9 g/dL (31.5-36.5); Mean Corpuscular Volume 97 fL (80-100); Mean Platelet Volume 10.5 fL (9.1-12.4); NEUTROPHILS ABSOLUTE AUTO 10.16 K/mm3 (1.96-9.15); NEUTROPHILS PERCENT AUTO 82 % (41-73); Platelet Count 422 K/mm3 (150-400); RDW Coefficient Variation 14.7 % (11.7-14.2); RDW Standard Deviation 52.4 fL (35.1-46.3); Red Blood Cell Count 3.66 M/mm3 (3.80-5.20); White Blood Cell Count 12.45 K/mm3 (4.00-11.30)
--- NOTE | 2019-01-06 05:30 | NUR ---
Rn summary: Patient is confused. She is alert to self and recognized the PLODDING OPERATOR who took care of her in the detention. Pt could not say her birthdate and when asked what her favorite color was she said "tomorrow". Pt is cooperative and has slept most of the night between cares. Pt has a peg tube that was draining coffee ground colored drainage and mucus from around tube, (pt had pulled it out and it was replaced on Tuesday). Drsg change x3 this shift. This am drainage was less old blood and more green bile. When given pain med through tube, no residuel present when checked, but clear liquid drains out around tube, especially after a cough. Discussed with Dae Clement NP and he states it was okay to use tube. Pt does have a productive cough with rhonchi in lungs, mostly upper lobes. Pt does have dysphasia precautions. Left arm is most painful for her with left leg pain and back pain. Pt medicated with percocet x2 this shift with moderate relief. 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 Will continue to monitor. after a cough. Pt has been incontinent of urine x2.
[2019-01-06 06:17] LABS: Albumin, Blood 2.5 g/dL (3.4-5.0); Albumin/Globulin Ratio 0.5 (0.8-1.8); Bilirubin, Total 0.3 mg/dL (0.1-1.0); Calcium, Blood 10.3 mg/dL (8.5-10.1); Globulin, Blood 5.1 g/dL (2.2-4.0); Magnesium, Blood 2.4 mg/dL (1.6-2.4); Potassium, Blood 3.2 mmol/L (3.5-5.5); Total Protein, Blood 7.6 g/dL (6.4-8.2)
--- NOTE | 2019-01-06 08:57 | NUR ---
PATIENT DID NOT EAT BREAKFAST THIS SHIFT. RN NOTIFIED.
--- NOTE | 2019-01-06 16:04 | NUR ---
PT ALERT, ORIENTED TO SELF, PT IS COOPERATIVE, HOWEVER YELLS OUT FOR HELP EVEN WHEN STAFF IS WITH HER HELPING HER, THE PT SLEPT FOR MOST OF THE DAY, THE PT WAS ASLEEP WHEN THE SPEECH THERAPIST MADE ROUNDS AND AN EVAL WAS NOT PERFORMED, THE PT ASKED FOR FOOD AND DRINK AT LUNCH TIME , THE PT WAS IN A HIGH ARMANDO POSITION AND WAS ENCOURAGE TO CHIN TUCK WHEN GIVEN PUREE FOODS, SUCTION WAS SET UP AT THE BEDSIDE, MEDS WERE GIVEN BOTH PO AND THROUGH THE PEG TUBE, PT WAS REPOSITIONED T/O THE DAY, BED ALARM ON
--- NOTE | 2019-01-06 17:26 | NUR ---
PATIENTS ATTENDS WERE CHECKED AND THEY WERE CLEAN AND DRY.
--- NOTE | 2019-01-07 05:10 | NUR ---
Rn summary: Patient has been more confused and restless tonight. Pt is calling out more and is difficult to get her comfortable, she is ether too hot or too cold. Pt continues to have light green (bile) drainage from around her peg tube. Drsg has been changed x2. Pt has had no residuel from her peg tube, only meds given through tube. Pt has taken one spoonful of thickened water and had a coughing fit. Lungs are course rhonchi with some wheezing. Resp therapy did evaluate and started some albuterol neb. Pt has been medicated x2 with percot 1 tab. She also c/o some nausia this am and received zofran 4 mg. Pt did quiet down and rest afterward. Pt is incontinent of urine, attends in place. Bed alarm on for safety. Call light is in reach but ptdoes not use. Freq monitoring.
--- NOTE | 2019-01-07 07:45 | NUR ---
PT STATUS THIS AM IT WAS NOTICED THAT THE PTS BP WAS CONSIDERABLY LOWER THAN NORMAL AT 93/45 HR 98 COMPARED TO SBP 160 AT 0400, THE PT OPENS HER EYES WITH STIMUKATION BUT DOES NOT RESPOND VERBALY, A CALL WAS MADE TO DR. HARDING AND AN ORDER FOR 500CC BOLUS WAS GIVEN
--- NOTE | 2019-01-07 08:52 | NUR ---
PATIENT DID NOT EAT BREAKFAST THIS SHIFT SHE IS NOT AWAKE ENOUGH. RN NOTIFIED.
--- NOTE | 2019-01-07 13:00 | NUR ---
PATIENT DID NOT EAT LUNCH THIS SHIFT DUE TO NOT BEING AWAKE ENOUGH AT THIS TIME TIME. RN NOTIFIED.
[2019-01-07 15:02] LABS: Vancomycin, Trough 18.3 ug/mL (5.0-10.0)
--- NOTE | 2019-01-07 17:26 | NUR ---
PT IS AWAKE ALERT TO SELF AND FAMILY ONLY, THIS AM THE PT WAS VERY LETHARGIC, BP WAS LOW, A CALL WAS MADE TO DR. HARDING AND A NS BOLUS WAS GIVEN, THIS AFTERNOON THE PT BECAME MORE AWAKE AND ALERT, TUBE FEEDING WAS ORDERED HOWEVER THE PTS PEG TUBE LEAKED EXCESSIVELY, IT APPEARED THAT MOST ALL OF THE TUBE FEEDING HAD DRAINED OUT, THE PT USES HER AUXCILLIARY MUSCLES TO BREATH, THE PTS APPEARS TO ASPIRATE WITH ANY PO INTAKE, WITH EXCESSIVE COUGHING, THE TUBE FEEDING WAS STOPPED PER DR. HARDING UNTIL FURTHER REVIEW, THE PTS SON WAS IN TO VISIT EARLIER TODAY, CALL LIGHT IN REACH, WILL CONTINUE TO MONITOR AND ASSESS FOR CHANGES
--- NOTE | 2019-01-08 04:17 | NUR ---
Rn summary: Patient is confused. She calls out for help occationally but cant specify what she wants. Pt lungs actually sound better tonight. Does have upper airway rhonchi. She continues to have moist wet cough,she does not bring anything up. Pt peg tube site is bruised and also has red skin breakdown from drainage. Zinc oxide cream was applied on day shift. Drsg has remained clean and dry when meds given. Pt repositioned for comfort and she has rested fairly well this shift. Pt remains in contact isolation. Frequent monitoring.
[2019-01-08 05:32] LABS: Hematocrit 32.6 % (33.0-51.0); Hemoglobin 9.3 g/dL (11.5-16.0); Mean Corpuscular HGB 29.1 pg (26.0-34.0); Mean Corpuscular HGB Conc 28.5 g/dL (31.5-36.5); Mean Platelet Volume 10.4 fL (9.1-12.4); Platelet Count 414 K/mm3 (150-400); RDW Coefficient Variation 15.9 % (11.7-14.2); RDW Standard Deviation 59.7 fL (35.1-46.3); White Blood Cell Count 12.82 K/mm3 (4.00-11.30)
[2019-01-08 05:35] LABS: Mean Corpuscular Volume 102 fL (80-100)
[2019-01-08 05:59] LABS: BAND PERCENT MAN 3 % (0-8); BASOPHILS PERCENT MAN 0 % (0-2); EOSINOPHILS ABSOLUTE MAN 0.12 K/mm3 (0.00-0.68); EOSINOPHILS PERCENT MAN 1 % (0-6); LYMPHOCYTES ABSOLUTE MAN 0.51 K/mm3 (0.84-5.20); LYMPHOCYTES PERCENT MAN 4 % (21-46); METAMYELOCYTE ABSOLUTE MAN 0.38 K/mm3 (0.00-0.00); METAMYELOCYTE PERCENT MAN 3 % (0-0); MONOCYTES ABSOLUTE MAN 0.12 K/mm3 (0.16-1.47); MONOCYTES PERCENT MAN 1 % (4-13); MYELOCYTE ABSOLUTE MAN 0.38 K/mm3 (0.00-0.00); MYELOCYTE PERCENT MAN 3 % (0-0); NEUTROPHILS ABSOLUTE MAN 11.28 K/mm3 (1.96-9.15); SEG NEUTROPHILS PERCENT MAN 85 % (41-73); TOTAL CELLS COUNTED 100
[2019-01-08 06:11] LABS: Albumin, Blood 2.3 g/dL (3.4-5.0); Albumin/Globulin Ratio 0.5 (0.8-1.8); Bilirubin, Total 0.3 mg/dL (0.1-1.0); Bun/Creatinine Ratio 10.4 (12.0-20.0); Calcium, Blood 10.1 mg/dL (8.5-10.1); Creatinine, Blood 1.15 mg/dL (0.40-1.00); Globulin, Blood 4.3 g/dL (2.2-4.0); Potassium, Blood 3.3 mmol/L (3.5-5.5); Total Protein, Blood 6.6 g/dL (6.4-8.2)
--- NOTE | 2019-01-08 18:39 | NUR ---
SUMM- PT ALERT TO SELF ONLY. ANSWERS IN ONE TO WORD PHRASES SOMETIMES CALLS OUT HELP ME. PT COMPLAINED OF A LOT OF PAIN THIS AM IN HER BACK. MEDICATED WITH ONE PERCOCET. PT WAS NAPPAIN AND BECAME VERY OBTUNDED, DR STONE AT BEDSIDE 1300 AND AWARE OF PTS CONDITION. OBTAINED SATS 96% ON 3L NC, VSS. RN INSTRUCTED TO JAE MEYER AND SEE HOW PT WAKES BEFORE ANY INTERVENTION. DC'D PERCOCET. CHANGED IVF TO D5W RELATED TO ELECTROLYTES INCREASED NA AND CL. NOTIFIED DR STONE [id number]. DR FENG CAME BY ABOUT 1730 AND ADJUSTED PEG AND OK'D FOR USE WITH MEDS AND BOLUS TUBE FEEDS ORDERED PREVIOUS. PT'S LUNGS REMIAN MOIST, OCC MOIST COUGH WITH PRODUCTION, ASSIST WITH YANKAUR SUCTION. PT MADE NPO AFTER SPEECH EVAL. FREQ ORAL CARE. PEG SITE CLEANSED THIS AM 1100 AND APPLIED ZINC AND COVERED WITH ABD TO PLACE TUBE OUT OF SITE OF PT. PLACED A POWERGLIDE TODAY RELATED TO LIMITED IV ACCESS. WILL REPOET TO RODRICK REILLY.
[2019-01-09 05:44] LABS: BASOPHILS ABSOLUTE AUTO 0.08 K/mm3 (0.00-0.23); BASOPHILS PERCENT AUTO 1 % (0-2); EOSINOPHILS ABSOLUTE AUTO 0.25 K/mm3 (0.00-0.68); EOSINOPHILS PERCENT AUTO 3 % (0-6); Hematocrit 32.2 % (33.0-51.0); Hemoglobin 9.5 g/dL (11.5-16.0); IMMATURE GRAN ABSOLUTE AUTO 0.24 K/mm3 (0.00-0.10); IMMATURE GRAN PERCENT AUTO 2 % (0-1); LYMPHOCYTES ABSOLUTE AUTO 0.96 K/mm3 (0.84-5.20); LYMPHOCYTES PERCENT AUTO 10 % (21-46); MONOCYTES ABSOLUTE AUTO 1.05 K/mm3 (0.16-1.47); MONOCYTES PERCENT AUTO 10 % (4-13); Mean Corpuscular HGB 29.2 pg (26.0-34.0); Mean Corpuscular HGB Conc 29.5 g/dL (31.5-36.5); Mean Corpuscular Volume 99 fL (80-100); Mean Platelet Volume 10.1 fL (9.1-12.4); NEUTROPHILS ABSOLUTE AUTO 7.56 K/mm3 (1.96-9.15); NEUTROPHILS PERCENT AUTO 74 % (41-73); Platelet Count 427 K/mm3 (150-400); RDW Coefficient Variation 16.3 % (11.7-14.2); RDW Standard Deviation 60.3 fL (35.1-46.3); Red Blood Cell Count 3.25 M/mm3 (3.80-5.20); White Blood Cell Count 10.14 K/mm3 (4.00-11.30)
--- NOTE | 2019-01-09 05:52 | NUR ---
SHIFT SUMMARY RESPONDS TO VERBAL STIMULI WITH 1-2 WORD ANSWERS. CALLS OUT THROUGHOUT NIGHT PERIODICALLY. COOPERATIVE WITH CARES. NO COMPLAINTS OR S/SX OF PAIN/DISCOMFORT. INCONTINENT ALTHOUGH KNOWS WHEN SHE NEEDS TO GO. PATIENT ASKED IF SHE WAS HUNGRY LAST NIGHT; STATED WAS NOT. CONTINUES TO REPEAT THAT SHE WANTS A DRINK OF WATER; REMINDED THAT SHE IS UNABLE TO HAVE ANYTING BY MOUTH. LS CONGESTED, NON-PRODUCTIVE COUGH; ATTEMPTED SUCTION, BUT NOTHING CAME OUT. ORAL CARE COMPLETED SEVERAL TIMES THROUGHOUT SHIFT. MEDS GIVEN PER PEG. SITE CLEANED, ZINC CREAM APPLIED AND DRESSING REPLACED. NO ACUTE CHANGES OVERNIGHT. VSS/AFEBRILE. BED IN LOWEST POSITION. ALARM ON. CALL LIGHT WITHIN REACH. WCTM. REPORT TO ONCOMING RN.
[2019-01-09 06:01] LABS: Albumin, Blood 2.3 g/dL (3.4-5.0); Anion Gap 5 mmol/L (6-16); Blood Urea Nitrogen 8 mg/dL (8-24); Bun/Creatinine Ratio 6.7 (12.0-20.0); CO2, Blood 20 mmol/L (21-32); Calcium, Blood 9.7 mg/dL (8.5-10.1); Chloride, Blood 129 mmol/L (98-108); Creatinine, Blood 1.19 mg/dL (0.40-1.00); Glomerular Filtration Rate 48 (60-); Glucose, Blood 96 mg/dL (70-99); Phosphorus, Blood 2.2 mg/dL (2.5-4.9); Potassium, Blood 2.8 mmol/L (3.5-5.5); Sodium, Blood 154 mmol/L (136-145)
--- NOTE | 2019-01-09 10:55 | NUR ---
FLUSH AND 1 CAN JEVITY GIVEN BY GRAVITY. NO RESIDUAL RETURNED. PT RESTING COMFORTABLY. DAILY MEDS ALSO GIVEN BY TUBE TOLERATED WELL.
[2019-01-09 14:58] LABS: Vancomycin, Trough 26.7 ug/mL (5.0-10.0)
--- NOTE | 2019-01-09 16:52 | NUR ---
Clinical Visit: Call from nurse, Erika. She states that pt was upset and was saying that she wanted to . Son is at bedside. Spoke to laurie Hill. He seems guarded. He answers all of my questions and is helpful with discussing symptoms and pt's history. He does share that "it has been a tough couple years." I ask if he wants to talk about it, he states, "there's not really anything to talk about. Just after her stroke, my dad from dementia, and now this..." He continues that all of this took place since 2016. Her last hospitalization, she was actually intubated and they were told that she had a 20% chance of coming off of the vent. He is encouraged that she did recover, but he expresses that he knows she is at end of life stage. Sergio is hoping that pt will "hang on" until february. A family member is graduating from high school and the entire family and extended family will be in town. Pt is awake from her nap and reports pain. Review of medications with Sergio. He states that pt usually takes percocet. According to the chart, this has been discontinued. Will follow up with nursing.
--- NOTE | 2019-01-09 19:13 | NUR ---
SHIFT SUMMARY CONFUSED, YELLING OUT. FAILED SWALLOW EVAL TODAY. STRICT NPO. INCONTINENT. PALLIATIVE CARE SPOKE WITH PT'S SON. PEG TUBE WNL. SUCTION AT BEDSIDE USED INTERMITTENTLY FOR SECRETIONS. TOLERATING BOLUS FEEDINGS WELL.
[2019-01-10 05:27] LABS: BASOPHILS ABSOLUTE AUTO 0.07 K/mm3 (0.00-0.23); BASOPHILS PERCENT AUTO 1 % (0-2); EOSINOPHILS PERCENT AUTO 2 % (0-6); Hematocrit 36.2 % (33.0-51.0); Hemoglobin 10.9 g/dL (11.5-16.0); IMMATURE GRAN ABSOLUTE AUTO 0.18 K/mm3 (0.00-0.10); IMMATURE GRAN PERCENT AUTO 2 % (0-1); LYMPHOCYTES ABSOLUTE AUTO 1.12 K/mm3 (0.84-5.20); LYMPHOCYTES PERCENT AUTO 10 % (21-46); MONOCYTES ABSOLUTE AUTO 0.75 K/mm3 (0.16-1.47); MONOCYTES PERCENT AUTO 7 % (4-13); Mean Corpuscular HGB Conc 30.1 g/dL (31.5-36.5); Mean Platelet Volume 10.1 fL (9.1-12.4); NEUTROPHILS ABSOLUTE AUTO 8.87 K/mm3 (1.96-9.15); NEUTROPHILS PERCENT AUTO 79 % (41-73); Platelet Count 520 K/mm3 (150-400); RDW Coefficient Variation 16.3 % (11.7-14.2); RDW Standard Deviation 57.3 fL (35.1-46.3); Red Blood Cell Count 3.76 M/mm3 (3.80-5.20); White Blood Cell Count 11.19 K/mm3 (4.00-11.30)
[2019-01-10 05:32] LABS: Mean Corpuscular Volume 96 fL (80-100)
[2019-01-10 05:45] LABS: Albumin, Blood 2.7 g/dL (3.4-5.0); Anion Gap 9 mmol/L (6-16); Blood Urea Nitrogen 10 mg/dL (8-24); Bun/Creatinine Ratio 8.1 (12.0-20.0); CO2, Blood 18 mmol/L (21-32); Calcium, Blood 10.1 mg/dL (8.5-10.1); Chloride, Blood 129 mmol/L (98-108); Creatinine, Blood 1.23 mg/dL (0.40-1.00); Glomerular Filtration Rate 46 (60-); Glucose, Blood 114 mg/dL (70-99); Phosphorus, Blood 1.6 mg/dL (2.5-4.9); Potassium, Blood 2.5 mmol/L (3.5-5.5); Sodium, Blood 156 mmol/L (136-145); Vancomycin, Random 23.1 ug/mL
--- NOTE | 2019-01-10 07:26 | NUR ---
confused but aware of surrondings, diarrhea, calllight in reach, walking rounds completed with returning nurse, saline locked, takes nc off
--- NOTE | 2019-01-10 09:00 | NUR ---
350ML FREE WATER GIVEN PER TUBE. TOLERATED WELL
--- NOTE | 2019-01-10 10:38 | NUR ---
FLUSHES AND TUBE FEEDING ADMINISTERED PT TOLERATED WELL; NO RESIDUAL. PEG TUBE SITE RED WITH YEAST LIKE ODOR AND YELLOW EXCUDATE. PT C/O PAIN TO SITE.
--- NOTE | 2019-01-10 12:30 | NUR ---
NO RESIDUAL; 350ML FREE WATER GIVEN; TOLERATED WELL
--- NOTE | 2019-01-10 16:30 | NUR ---
TUBE FEEDING AND FLUSHES GIVEN; SCANT AMOUNT RESIDUAL. PEG TUBE SITE CLEANED YELLOW EXUDATE NOTED; NYSTATIN CREAM APPLIED AND DRSG CHANGED.
--- NOTE | 2019-01-10 17:45 | NUR ---
COOL EXTREMETIES; APPEARS WITHDRAWN; VSS ALTHOUGH RR 25; AFEBRILE. DENIES PAIN; LESS RESPONSIVE THAN THIS A.M. PALLIATIVE CARE AT BEDSIDE WITH PT'S SON. DR. STONE AWARE OF PT CONDITION.
--- NOTE | 2019-01-10 18:37 | NUR ---
Clinical Visit: Spoke to son about comfort care. He is concerned and states that "she still has the fight in her," and "I hate to just give up on her like that." Reviewed current problems with son. I explained that pt's prognosis is not well. Reviewed chart, medications. He has questions about antibiotics, which I answer. His biggest concern is her eating and her pain control. He is aware that her percocet was discontinued and he wonders if she is going to be in withdrawal. Reviewed this. He seems to be placing her on comfort care so that she can get water and food, as she wants. This seems to be a fixation for him. He isn't sure if he wants to place pt on hospice, he requests to wait until tomorrow to talk about this again. Discussed risks of feeding her; reviewed speech therapy notes, labs. He is asking if her infection is better. Reviewed indications of infection. He keeps saying things like, "but she has eaten for years at [facility] and it's never bothered her before," and "she signed a waiver so she can eat." Explained risks of comfort care, stated that she may . He verbalizes understanding. He is agreeable if pt is able to keep her medications, antibiotics, and resume feeding her. Call placed to . Abreviated comfort care is okay: keep medications, reorder percocet per son's request, order diet. She would like to talk to him tomorrow, he will be here at 4pm. This is arranged to be the time for the family and doc to talk. Comfort orders placed. Will remain available.
--- NOTE | 2019-01-10 19:15 | NUR ---
Clinical Visit: Pt looks poorly. Nursing reports that she has been worse today than yesterday. Respirations are 25-30/min. Shallow, pale appearance. Secretions are increased. Discussed with Tere, nurse. She states that pt would probably welcome a breathing treatment; pt too somnulent to say for herself, so this was requested per assessment. Resp therapy in to give breathing treatment. Discussed with Tanika, resp therapist. Tanika is not alarmed by her appearance, as pt is known to her. Will follow up with son when he arrives.
--- NOTE | 2019-01-10 19:37 | NUR ---
SHIFT SUMMARY OX2 SLURRED SPEECH. DIARRHEA THIS A.M. INCONTINENT. C/O LOWER BACK PAIN. EXTREMETIES QUITE COOL AND PT LESS ALERT THIS P.M. YELLING OUT AT TIMES. LIVES AT [facility]. SON SPOKE WITH PALLIATIVE CARE THIS P.M. AND CHOSE TO PROCEED WITH COMFORT ORDERS.
--- NOTE | 2019-01-11 04:21 | NUR ---
SHIFT SUMMARY PT ADMITTED FOR SEPSIS WITH DX OF PNEUMONIA. CONTACT ISOLATION FOR ESBL AND MRSA IN URINE AND HX OF MRSA IN WOUND. PT TRANSITIONED TO COMFORT CARE YESTERDAY. AM LABS DISCONTINUED FOR TODAY DUE TO CC STATUS AND BRODERICK MEDICATIONS HELD OTHER THEN ABO AND NYSTATIN TO PEG TUBE SITE. NPO DIET CHANGED TO REGULAR FOR CC AND PLEASURE FEEDING. POWERGLIDE TO GONZALEZ. 3L O2 VIA NC. MEDICATED FOR PAIN X2 SO FAR THIS SHIFT. PT WITH C/O 9/10 PAIN, MEDICATED PER EMAR AND PT HAS APPEARED TO REST COMFORTABLY SINCE SECOND DOSE OF 20MG PAIN MEDICATION INCREASED FROM 10MG DUE TO INITIAL DOSE NOT APPEARING TO BE EFFECTIVE. THE PT APPEARS TO BE SLEEPING COMFORTABLY AT THIS TIME. FREQUENT VISUAL CHECKS AND REPOSITION FOR COMFORT.
--- NOTE | 2019-01-11 13:04 | NUR ---
0800 NOTE SHE IS SLEEPING COMFORTABLY. LH BRACE ON.
--- NOTE | 2019-01-11 13:05 | NUR ---
1000 NOTE WILL MEDICATE HER WITH ROXANOL TO HER FOR RESP 30/MIN. SHE HAD PERICARE AND BOTTOM FLOATED. NO OTHER CHANGES.
--- NOTE | 2019-01-11 13:07 | NUR ---
1200 NOTE SHE HAS HAD A BATH. PEG SITE CLEANED WITH 50% PEROXIDE SOLUTION. SKIN RINSED, DRIED AND NYSTATIN CREAM APPLIED. AREA RED WITH YEAST. SHE TOLERATED IT WELL ALONG WITH A TUBE FEEDING AND MEDS. NO LEAKING SEEN AT SITE. SHE ASKED FOR DRINKS OF WATER. SHE COUGHS WITH SWALLOWS. HANDS AND FEET ARE COLD. FEET CYANOTIC.
--- NOTE | 2019-01-11 14:07 | NUR ---
Comfort Care: Pt placed on comfort care yesterday evening. She is a resident of [facility] and will return there today. She will be followed by hospice. Spoke with nurse Lashell. She reports that pt has received one dose of roxanol with good effect. No other concerns. Will remain available.
[2019-01-11] MEDS ORDERED: Lopressor 25 mg25 MG PT (15:13)
[2019-01-11] MEDS ORDERED: ALBU2.5V5 NEB (15:18)
[2019-01-11] MEDS ORDERED: MORP20L SL (15:33)
[2019-01-11] MEDS ORDERED: NYST100000 TOP (15:33)
--- NOTE | 2019-01-11 15:35 | NUR ---
1400 NOTE SHE IS SLEEPING COMFORTABLY. NO FAMILY TODAY BUT THE MICROFILM MACHINE OPERATOR SPOKE TO HER SON ON THE PHONE ABOUT HER DISCHARGE BACK TO [facility] THIS AFTERNOON.
[2019-01-11] MEDS ORDERED: SCOPOLAMINE1 EACH TD (15:36)
[2019-01-11] MEDS ORDERED: DOXY100 PT (15:36)
--- NOTE | 2019-01-11 16:00 | NUR ---
SHE WILL BE DISCHARGED AT 5 PM BACK TO [facility] WITH COMFORT CARE ORDERS. SHE HAS BEEN GIVEN A FEW DRINKS OF WATER BY HER REQUEST TODAY. SHE COUGHED EACH TIME. SHE RECIEVED MEDS AND JEVITY THROUGH HER PEG THIS MORNING WITHOUT IT LEAKING. SITE CLEANED AND NYSTATIN CREAM APPLIED. THE REDNESS LOOKS LIKE YEAST TO ME. UNFORTUNATELY, 3 1/2 HRS LATER THE RESIDUAL WAS 230 MLS. I RE-INSTILLED IT AND GAVE HER SOME WATER THROUGH THE PEG. SHE HAS SEEMED COMFORTABLE. HER SON MAMIE IS AT THE BEDSIDE CHECKING ON HER. RESP 22/MIN. SHE LOOKS COMFORTABLE. SHE DID NOT WAKE UP TO ACKNOWLEDGE HER SON.
--- NOTE | 2019-01-11 18:38 | NUR ---
AT 1640 WE FOUND THAT SHE LEAKED LOTS OF YELLOW COLOR FLUID AROUND HER PEG TUBE. I NOTIFIED . SHE HAD ME CALL . HE THEN CAME UP AND SHOWED ME HOW TO SNUG UP THE PEG TUBE TO MARKER 3 AT THE SKIN. I PASSED THESE INSTRUCTIONS ONTO THE [facility] RN IN REPORT JUST NOW. SHE JUST DISCHARGED TO [facility] BY [facility] TRANSPORT WITH BELONGINGS.
== END 2019-01-11 18:33 | DRG 871 ==
LOC: ER 08:08 → MEDS 10:10 → EDPENDDIS 01-11 12:48 → ENPENDDIS 01-11 12:48 → MEDS 01-11 18:33
PROVIDERS: Emergency Medicine; Family Medicine; Orthopaedic Surgery; ADMIT Internal Medicine
PROC: 0D20XUZ Change Feeding Device in Upper Intestinal Tract, External Approach (ICD-10-PCS; principal; 2019-01-05)
DX: A41.02 Sepsis due to Methicillin resistant Staphylococcus aureus (principal); G92 Toxic encephalopathy; I69.351 Hemiplegia and hemiparesis following cerebral infarction affecting right dominant side; N39.0 Urinary tract infection, site not specified; E87.0 Hyperosmolality and hypernatremia; I48.0 Paroxysmal atrial fibrillation; J44.9 Chronic obstructive pulmonary disease, unspecified; Z86.718 Personal history of other venous thrombosis and embolism; I71.4 Abdominal aortic aneurysm, without rupture; Z79.82 Long term (current) use of aspirin; Z87.891 Personal history of nicotine dependence; K94.29 Other complications of gastrostomy; Z74.01 Bed confinement status; Z99.81 Dependence on supplemental oxygen; I95.9 Hypotension, unspecified; E87.6 Hypokalemia; D69.6 Thrombocytopenia, unspecified; N18.3 Chronic kidney disease, stage 3 (moderate); I12.9 Hypertensive chronic kidney disease with stage 1 through stage 4 chronic kidney disease, or unspecified chronic kidney disease; Z51.5 Encounter for palliative care; T39.1X5A Adverse effect of 4-Aminophenol derivatives, initial encounter; Y92.239 Unspecified place in hospital as the place of occurrence of the external cause
CPT/HCPCS: 36415; 43762; 49465; 71045; 71046; 80053; 80069; 80202; 81001; 83605; 83735; 84484; 85025; 85610; 87040; 87077; 87086; 87186; 92526; 92610; 93005; 93010; 94640; 94760; 96365-59; 96375-59; 99285-25; C1751; J1650; J2060; J2543; J3370; J3480; J3490; J7030; J7042; J7070; P9612; Q9963